=== PATIENT | male | born 1940 | race Caucasian/White ===

== ENCOUNTER 2018-01-03 06:47 | Day surgery (SDC) | payer MEDICARE, MEDICAID ==
[2018-01-02 15:01] LABS: BASOPHILS % (AUTO) 0.8 % (0-1); EOSINOPHILS # (AUTO) 0.2 X10'3 (0-0.9); EOSINOPHILS % (AUTO) 3.2 % (0-6); HEMATOCRIT 33.1 % (42.0-52.0); HEMOGLOBIN 11.4 g/dl (14.0-17.9); LYMPHOCYTES # (AUTO) 0.8 X10'3 (1.1-4.8); LYMPHOCYTES % (AUTO) 13.2 % (21-51); MEAN CORPUSCULAR HEMOGLOBIN 33.8 PG (27.0-31.0); MEAN CORPUSCULAR HGB CONC 34.5 % (33.0-36.5); MEAN CORPUSCULAR VOLUME 97.9 FL (78-98); MEAN PLATELET VOLUME 8.1 FL (7.4-10.4); MONOCYTES # (AUTO) 0.5 X10'3 (0-0.9); NEUTROPHILS # (AUTO) 4.5 X10'3 (1.8-7.7); NEUTROPHILS % (AUTO) 73.8 % (42-75); PLATELET COUNT 211 X10'3 (140-440); RED BLOOD COUNT 3.39 X10'6 (4.70-6.10); RED CELL DISTRIBUTION WIDTH 15.6 % (11.5-14.5); WHITE BLOOD COUNT 6.1 X10'3 (4.5-11.0)
[2018-01-02 15:09] LABS: ALBUMIN 3.6 G/DL (3.4-5.0); ANION GAP 10 (8-16); BLOOD UREA NITROGEN 75 MG/DL (7-18); BUN/CREATININE RATIO 23.1 (5.4-32.0); CALCIUM 9.1 MG/DL (8.5-10.1); CHLORIDE 97 MMOL/L (99-107); CREATININE 3.25 MG/DL (0.60-1.10); GLUCOSE 121 MG/DL (70-104); POTASSIUM 4.7 MMOL/L (3.5-5.1); SODIUM 136 MMOL/L (135-145); TOTAL CARBON DIOXIDE 28.7 MMOL/L (24-32); eGFR 19 ML/MIN
[2018-01-02 15:11] LABS: INR 1.2 INR
[2018-01-03] VITALS (18 sets, daily range): BP systolic 126–154; BP diastolic 55–80
[~2018-01-03] VITALS: Ht 172.7 cm; Wt 111.9 kg
[~2018-01-03 06:47] MED LIST: ALLO100T PO; BACL20TA PO; CARV-50 PO; CLOP75TA35 PO; CYAN-19 PO; FERR-86 PO; FINA5TAB11 PO; FURO40TA4 PO; GABA-532 PO; INDSR75C PO; ISOS60TA PO; MORP30CA16 PO; MULT1TAB74 PO; TERA2CAP4 PO
[2018-01-03] MEDS ORDERED: normal saline 1000ml 1,000 ML IV SCH (07:10)
[2018-01-03] MEDS ORDERED: diphenhydrAMINE 25mg capsule PO ONE ×2 (07:10→08:25)
[2018-01-03] MEDS ORDERED: MIDAZolam 5mg/ml 2ml vial IV ONE ×2 (07:10→08:25)
[2018-01-03] MEDS ORDERED: morphine 10mg/ml inj. IV ONE ×2 (07:10→08:25)
[2018-01-03] MEDS ORDERED: LORazepam 0.5 MG tablet PO ONE ×2 (07:10→08:25)
[2018-01-03] MEDS ORDERED: LISI2.5T89 PO (08:03)
[2018-01-03] MEDS ORDERED: CARSR60C PO (08:03)
[2018-01-03] MEDS ORDERED: ZAR2.5T PO (08:03)
[2018-01-03] MEDS ORDERED: GABA-532 PO (08:03)
[2018-01-03] MEDS ORDERED: APIX5TAB3 PO (08:03)
[2018-01-03] MEDS ORDERED: AMIO200T27 PO (08:03)
[2018-01-03] MEDS ORDERED: amiodarone 150mg/dext, iso-os 100 ML IV ONE (09:20)
[2018-01-03] MEDS ORDERED: atropine 0.1mg/ml 10ml syringe IV ONE (09:20)
== END 2018-01-03 14:00 | disposition home or self-care (01) ==
LOC: SSTAY O 06:47
PROVIDERS: ATTEND Internal Medicine Cardiovascular Disease
DX: I48.91 Unspecified atrial fibrillation (principal); E78.5 Hyperlipidemia, unspecified; I25.810 Atherosclerosis of coronary artery bypass graft(s) without angina pectoris; I45.81 Long QT syndrome; I11.0 Hypertensive heart disease with heart failure; I50.9 Heart failure, unspecified; J44.9 Chronic obstructive pulmonary disease, unspecified; M19.90 Unspecified osteoarthritis, unspecified site; H54.62 Unqualified visual loss, left eye, normal vision right eye; E66.9 Obesity, unspecified; I07.1 Rheumatic tricuspid insufficiency; F17.210 Nicotine dependence, cigarettes, uncomplicated; N40.0 Benign prostatic hyperplasia without lower urinary tract symptoms; Z96.653 Presence of artificial knee joint, bilateral; Z96.642 Presence of left artificial hip joint; Z95.1 Presence of aortocoronary bypass graft; Z79.891 Long term (current) use of opiate analgesic; Z79.01 Long term (current) use of anticoagulants; Z95.5 Presence of coronary angioplasty implant and graft; Z96.698 Presence of other orthopedic joint implants; Z72.89 Other problems related to lifestyle; Z79.02 Long term (current) use of antithrombotics/antiplatelets; Z68.37 Body mass index [BMI] 37.0-37.9, adult; Z86.73 Personal history of transient ischemic attack (TIA), and cerebral infarction without residual deficits; Z79.899 Other long term (current) drug therapy; Z98.890 Other specified postprocedural states
CPT/HCPCS: 36415; 80048; 85025; 85610; 92960; 93005; J2250; J2270; J7030; Q0163; A4620; J0282; J0461